=== PATIENT | female | born 1950 | race Caucasian/White ===

== ENCOUNTER → 2019-12-11 | Outpatient (CLI) | payer OTHER, MEDICARE ==
[2019-12-11 10:50] LABS: BASO # 0.1 x10^3/uL (0.0-0.2); BASO % 1 % (0-3); EOS # 0.1 x10^3/uL (0.0-0.7); EOS % 1 % (0-3); HEMOGLOBIN 15.4 g/dL (12.0-15.5); LYMPH # 2.5 x10^3/uL (1.0-4.8); LYMPH % 23 % (24-48); MEAN CORPUSCULAR HEMOGLOBIN 33 pg (25-35); MEAN CORPUSCULAR HGB CONC 34 g/dL (31-37); MEAN CORPUSCULAR VOLUME 96 fL (79-100); MONO # 0.8 x10^3/uL (0.0-1.1); MONO % 7 % (0-9); NEUT # 7.5 x10^3/uL (1.8-7.7); NEUT % 68 % (31-73); PLATELET COUNT 358 x10^3/uL (140-400); RED BLOOD COUNT 4.68 x10^6/uL (3.50-5.40); RED CELL DISTRIBUTION WIDTH 13.2 % (11.5-14.5)
[2019-12-11 11:17] LABS: ANION GAP 9 (6-14); BLOOD UREA NITROGEN 15 mg/dL (7-20); BUN/CREATININE RATIO 21 (6-20); CALCIUM 9.3 mg/dL (8.5-10.1); CARBON DIOXIDE 27 mmol/L (21-32); CHLORIDE 103 mmol/L (98-107); CREATININE 0.7 mg/dL (0.6-1.0); GFR 82.7; GLUCOSE 102 mg/dL (70-99); POTASSIUM 4.1 mmol/L (3.5-5.1); SODIUM 139 mmol/L (136-145)
[2019-12-11 11:23] LABS: ALBUMIN 3.8 g/dL (3.4-5.0); ALBUMIN/GLOBULIN RATIO 0.8 (1.0-1.7); ALK PHOS 98 U/L (46-116); ALT (SGPT) 15 U/L (14-59); TOTAL BILIRUBIN 0.4 mg/dL (0.2-1.0); TOTAL PROTEIN 8.4 g/dL (6.4-8.2)
[2019-12-11 11:25] LABS: AST (SGOT) < 5 U/L (15-37)
[2019-12-12 19:10] LABS: ANA INTERP Negative (.)
== END ==
LOC: ONCLAB 10:35
PROVIDERS: ATTEND Internal Medicine Hematology & Oncology
DX: D72.829 Elevated white blood cell count, unspecified (principal)
CPT/HCPCS: 36415; 80053; 81270; 85025; 86038

== ENCOUNTER → 2019-12-20 | Outpatient (CLI) | payer OTHER, MEDICARE ==
--- NOTE | 2019-12-20 10:09 | RAD ---
DATE: 12/20/2019 8:03 AM EXAM: MAMMO [place] SCREENING BILATERAL HISTORY: Screening COMPARISON: None. This is a baseline Bilateral CC and MLO views of the breasts were performed. Bilateral breast tomosynthesis was performed in CC and MLO projections. This study was interpreted with the benefit of Computerized Aided Detection (CAD). FINDINGS: Breast Density: FATTY The Breast Parenchyma is primarily fatty replaced. Breast parenchyma level density A. No suspicious masses, microcalcifications or architectural distortion is present to suggest malignancy in either breast. The visualized axillae are unremarkable. IMPRESSION: No mammographic evidence of malignancy. BI-RADS CATEGORY: 1 NEGATIVE RECOMMENDED FOLLOW-UP: 12M 12 MONTH FOLLOW-UP Annual screening mammography is recommended, unless clinically indicated sooner based on symptoms or change in physical exam. PQRS compliance statement: Patient information was entered into a reminder system with a target due date for the next mammogram. Mammography is a sensitive method for finding small breast cancers, but it does not detect them all and is not a substitute for careful clinical examination. A negative mammogram does not negate a clinically suspicious finding and should not result in delay in biopsying a clinically suspicious abnormality. "Our facility is accredited by the [employer] Mammography Program."
== END | disposition home or self-care (01) ==
LOC: MAMMO 07:41
PROVIDERS: ATTEND Internal Medicine Hematology & Oncology
DX: Z12.31 Encounter for screening mammogram for malignant neoplasm of breast (principal)
CPT/HCPCS: 77063; 77067

== ENCOUNTER → 2019-12-28 | Outpatient (CLI) | payer OTHER ==
--- NOTE | 2019-12-28 08:29 | RAD ---
EXAM: CT chest low dose lung cancer screening. HISTORY: Cigarette smoking history. TECHNIQUE: Computed tomographic images of the chest were obtained without contrast. Multiplanar reformatting was performed. *One or more of the following individualized dose reduction techniques were utilized for this examination: 1. Automated exposure control. 2. Adjustment of the mA and/or kV according to patient size. 3. Use of iterative reconstruction technique. COMPARISON: None. FINDINGS: There is no pneumothorax or pleural effusion. There is linear scarring within the anterior medial right upper lobe and middle lobe. There is also mild scarring involving the anterior medial left upper lobe and lingula. There is no suspicious pulmonary nodule. The heart is normal in size. There is calcified atherosclerotic plaque involving the coronary arteries. The aorta is normal in caliber. There is no mediastinal or hilar lymphadenopathy. There is no acute finding involving the upper abdomen or osseous structures. There is multilevel degenerative change involving the thoracic spine. IMPRESSION: 1. No acute thoracic finding or suspicious pulmonary nodule. Lung RADS category 1: Annual CT chest low dose lung cancer screening is recommended. 2. Focal areas of scarring predominantly within the anterior medial right upper and middle lobes. Electronically signed by: Carole Cervantes MD (12/28/2019 8:26 AM) [id number]
--- NOTE | 2019-12-28 08:56 | RAD ---
Three-view right knee HISTORY: Right knee pain for one year AP lateral oblique views There is a and 11 cm in length sclerotic lesion in the distal femur that causes significant cortical thickening medially however in the lateral view it is seen both anterior and posteriorly. There is some irregularity of the femoral shaft with mixed sclerotic and lytic changes. This is seen above the joint space. The remaining visualized osseous structures appear normal. IMPRESSION: Blastic osseous lesion of the distal femur. This could be primary sarcoma. Recommend MRI with without contrast if the patient does not have known metastatic cancer. Electronically signed by: Alejandro Saravia III, MD (12/28/2019 8:53 AM) [id number]
== END | disposition home or self-care (01) ==
LOC: CT 09:41
PROVIDERS: ATTEND Internal Medicine Hematology & Oncology
DX: M17.11 Unilateral primary osteoarthritis, right knee (principal); I25.10 Atherosclerotic heart disease of native coronary artery without angina pectoris; G57.20 Lesion of femoral nerve, unspecified lower limb; M47.814 Spondylosis without myelopathy or radiculopathy, thoracic region; F17.210 Nicotine dependence, cigarettes, uncomplicated
CPT/HCPCS: 73562; G0297

== ENCOUNTER → 2020-01-04 | Outpatient (CLI) | payer OTHER ==
--- NOTE | 2020-01-04 13:09 | RAD ---
STUDY: MRI of the right knee without contrast INDICATION: Right knee pain. Leukocytosis. COMPARISON: Right knee radiographs 12/28/2019. TECHNIQUE: Multiplanar MR imaging of the right knee performed without the use of intravenous or intra-articular contrast. FINDINGS: Menisci: Intact. Cruciate ligaments: Intact. Collateral ligaments: Intact. Tendons: Edema-like signal along the adductor sussy as it approaches its femoral insertion but the tendon remains intact. The additional tendons at the knee are intact as well. Cartilage: Patellofemoral: Localized high-grade chondrosis at the medial patellar facet adjacent to the median ridge. No high-grade trochlear chondrosis. Lateral compartment: Focal high-grade/full-thickness chondral defect at the far posterior nonweightbearing lateral femoral condyle, image 10 series 5, measuring approximately 4 x 7 mm. Medial compartment: Partial thickness chondrosis at the weightbearing medial femoral condyle more so than medial tibial plateau with extension to involve the proximal nonweightbearing medial femoral condyle. Bones: Partially imaged thick periosteal reaction centered along the medial margin of the distal femur and becoming less distinct approaching the adductor tubercle. The visualized portion measures up to 9 mm in thickness. Patchy marrow edema most notable deep to the periosteal reaction at and just above adductor tubercle and less pronounced scattered elsewhere subjacent to the femoral diametaphyseal cortex such as on image 5 series 5. Where the periosteal reaction is thickest the margins are smooth but more irregular at other locations such as at the anterior aspect of the distal diaphysis, image 3 series 5. Tibial plateau cystic focus deep to the medial meniscus posterior root insertion is typical of an intraosseous ganglion. More patchy T2 signal at the far posterior lateral tibial plateau is favored vascular and not suspicious for an aggressive lesion. Miscellaneous: Small tracking ganglion cyst along the interface of the popliteus and medial gastrocnemius muscles. No significant knee joint effusion. Soft tissue edema along the anterior and medial aspects of the distal femur such as involving the prefemoral fat pad and extending adjacent to the medial gastrocnemius origin. No pathologically enlarged popliteal fossa lymph nodes. IMPRESSION: 1. Not fully imaged is a thick periosteal reaction along the medial half of the distal femur extending to approximately the adductor tubercle. Associated patchy marrow and surrounding soft tissue edema-like signal. Chronic osteomyelitis could in part account for the findings but the presence of edema could indicate ongoing/smoldering infection. Primary or secondary lymphoma, metastatic disease or a primary osseous malignancy cannot be excluded until the full extent of the process has been imaged. It is recommended that the patient return for a repeat MRI with the field of view extending from the mid femur to the knee articulation and both with and without contrast. 2. No acute injury of the soft tissue supporting structures of the knee. 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 Electronically signed by: LEVI WISE MD (01/04/2020 1:06 PM) [id number]
== END | disposition home or self-care (01) ==
LOC: MRI 08:35
PROVIDERS: ATTEND Internal Medicine Hematology & Oncology
DX: M17.11 Unilateral primary osteoarthritis, right knee (principal); D72.829 Elevated white blood cell count, unspecified; M86.8X6 Other osteomyelitis, lower leg
CPT/HCPCS: 73721

== ENCOUNTER 2021-05-11 08:55 | Emergency (ER) | payer OTHER ==
[~2021-05-11] VITALS: Ht 157.5 cm; Wt 56.3 kg
--- NOTE | 2021-05-11 09:23 | PHYS DOC ---
General Adult EDM: Chief Complaint: COUGH HPI: HPI: Patient is a 71-year-old female who presents to the emergency department for a productive cough and shortness of breath x7 days. Patient denies fever, chest pain, sick exposures, nausea, vomiting. She is not vaccinated for COVID-19 but did receive the influenza vaccine. Patient has a history of hypertension and is a current 1 pack/day smoker. Review of Systems: Review of Systems: Constitutional: negative unless reported in HPI Eyes: negative unless reported in HPI HENT: negative unless reported in HPI Respiratory: negative unless reported in HPI Cardiovascular: negative unless reported in HPI GI: negative unless reported in HPI : negative unless reported in HPI Musculoskeletal: negative unless reported in HPI Integument: negative unless reported in HPI Neurologic: negative unless reported in HPI Endocrine: negative unless reported in HPI Lymphatic: negative unless reported in HPI Psychiatric: negative unless reported in HPI Heart Score: C/O Chest Pain: No Risk Factors: Risk Factors: DM, Current or recent (<one month) smoker, HTN, HLP, family history of CAD, obesity. Risk Scores: Score 0 - 3: 2.5% MACE over next 6 weeks - Discharge Home Score 4 - 6: 20.3% MACE over next 6 weeks - Admit for Clinical Observation Score 7 - 10: 72.7% MACE over next 6 weeks - Early Invasive Strategies Physical Exam: PE: Constitutional: Well developed, well nourished, no acute distress, non-toxic appearance. [] HENT: Normocephalic, atraumatic, bilateral external ears normal, oropharynx moist, no oral exudates, nose normal. [] Eyes: PERRL, EOMI, conjunctiva normal, no discharge. [] Neck: Normal range of motion, no tenderness, supple, no stridor. [] Cardiovascular:Heart rate tachycardic rhythm, no murmur [] Lungs & Thorax: scattered wheezing. Abdomen: Bowel sounds normal, soft, no tenderness, no masses, no pulsatile masses. [] Skin: Warm, dry, no erythema, no rash. [] Back: Normal range of motion Extremities: No tenderness, no cyanosis, no clubbing, ROM intact, no edema. [] Neurologic: Alert and oriented X 3, normal motor function, normal sensory function, no focal deficits noted. [] Psychologic: Affect normal, judgement normal, mood normal. [] EKG: EKG: [] Radiology/Procedures: Radiology/Procedures: []REASON: soa, cough, pui PROCEDURE: PORTABLE CHEST 1V EXAM: Chest, single view. HISTORY: Cough. Shortness of air. COMPARISON: CT dated 12/28/2019. FINDINGS: A frontal view of the chest is obtained. There is linear right parahilar opacity likely due to scarring demonstrated on the comparison CT. There is mild emphysema. There is right basilar opacity likely due to atelectasis. There is also slight blunting of the right costophrenic angle due t o pleural thickening or trace pleural fluid. There is a prominent cardiac silhouette. IMPRESSION: 1. Suspected right basilar atelectasis or infiltrate with slight pleural thickening or trace pleural fluid. 2. Emphysema and right perihilar scarring. Electronically signed by: Carole Cervantes MD (05/11/2021 9:29 AM) [id number] DICTATED and SIGNED BY: CAROLE CERVANTES MD DATE: 05/11/21 [id number] 0 Course & Med Decision Making: Course & Med Decision Making Pertinent Labs and Imaging studies reviewed. (See chart for details) Patient presents for a productive cough and shortness of breath x1 week. Patient is a current 1 pack/day smoker and has history of hypertension. Patient is afebrile, not hypoxic, heart rate is 103 bpm. Patient will be tested for COVID-19 and influenza. She will have a chest x-ray to rule out pneumonia. Patient is Covid positive. Chest x-ray does show pneumonia. Patient will be treated with combination therapy antibiotic to treat community-acquired pneumonia, she will be discharged home with a ProAir inhaler and steroids as she does have emphysematous changes on her chest x-ray and likely has COPD due to her smoking. Educated on smoking cessation. Advised to purchase pulse oximeter. Patient's vital signs continue to be stable, her heart rate is 100 bpm and she is not hypoxic or febrile. I discussed with patient all findings and diagnostic testing as well as the need to follow-up with PCP for further evaluation and treatment or return to the ER if any new or worsening symptoms. Strict return precautions were also discussed at length. Patient voiced understanding and agreement with the plan. Patient is hemodynamically stable at the time of disposition. Dragon Disclaimer: Dragon Disclaimer: This electronic medical record was generated, in whole or in part, using a voice recognition dictation system. Departure Departure Impression: Primary Impression: Pneumonia due to COVID-19 virus Disposition: 01 HOME / SELF CARE / HOMELESS Condition: GOOD Referrals: ARTHUR MCFADDEN MD (PCP) Patient Instructions: Pneumonia, Adult, Smoking Cessation, Tips For Success Additional Instructions: You were seen in the emergency department today for cough and shortness of breath. Your rapid Covid test was positive. Your chest x-ray did show pneumonia. You are being discharged home with 2 antibiotics to treat this pneumonia. You are also being discharged home with an inhaler that you can use when you feel short of breath as needed. Also, take steroids starting tomorrow. Please discontinue smoking. Increase your fluids and rest. Take Tylenol and ibuprofen for any pain or fevers. I would advise you to purchase a pulse oximeter and monitor your oxygen saturation levels at home. If they drop below 90%, please return to the emergency department. Follow-up with your primary care provider tomorrow regarding your ER visit. Return to the emergency department if you develop increased shortness of breath, chest pain, high fevers refractory to treatment, intractable nausea or vomiting, weakness. You have been tested for or diagnosed with COVID-19. It is an infection caused by a new type of coronavirus. COVID-19 will cause cold-like or mild flu symptoms in most. It can cause more severe symptoms like problems breathing in some. There is no treatment for COVID-19. The body will clear the infection over time. Self-care will help to ease discomfort. Steps to Take: Self-Care Rest as needed. Healthy habits may help you feel better. Steps include: Choose healthy foods including fruits and vegetables. Drink water throughout the day. Get plenty of sleep each night. If you smoke, try to quit. It may ease breathing. Avoid alcohol. Keep Others Healthy The virus can spread to others. Droplets are released every time you sneeze or cough. The droplets can get into the mouth, nose, or eyes of people near you and lead to infection. To lower the chances of spreading COVID-19 to others: Stay at home until your doctor has said it is safe to leave. If you tested positive this will mean staying isolated until both of the following are true: At least 7 days have passed since the start of illness. You are free of fever for at least 72 hours without the use of medicine. During this time: - Avoid public areas, events, or transportation. Do not return to work or school until your doctor has said it is safe to do so. - Call ahead if you need to go to a medical center. Let them know you may have COVID-19. It will help them guide you where to go. They may also ask you to wear a facemask when you come to the office. - If you call for emergency medical services, let them know you may have COVID- 19. While at home: - Try to avoid close contact with others. Stay about 6 feet away. - If possible, spend most of your time in a separate room from others. - Use a face mask if you will be in close contact with others such as sharing a room or vehicle. - Have someone wipe down common surfaces in the home. Use household potash flaker every day on areas like doorknobs, counters, or sinks. - Cough or sneeze into a tissue. Throw the tissue away right after use. If a tissue is not available, cough or sneeze into your elbow. - Wash your hands often. Wash them after sneezing or coughing. Use soap and water and wash for at least 20 seconds. Alcohol based hand ceiling cleaner can be used if soap and water is not available. - Do not prepare food for others. Avoid sharing personal items like forks, spoons, or toothbrushes. - Avoid close contact with pets while you are sick. There is no evidence of the virus passing to pets. This is a safety step until more is known about this virus. Isolation can be frustrating. Social interaction can help. Keep in touch with friends and family through phone and tech options. You can still interact with others in your home, just keep a safe distance of about 6 feet. Follow-up: Your doctors office will check in with you to see if there are any changes in your health. You may be asked to keep track of symptoms to share with them. They will also let you know when you are clear to be in public again. Problems to Look Out For: Contact your doctor if your recovery is not going as you expect. Get emergency care if you have problems such as: - Trouble breathing - Nonstop chest pain or pressure - Changes in awareness, confusion, or problems waking - Lips or face have bluish color - Worsening of symptoms If you think you have an emergency, call for emergency medical services right away. As taken from [facility] [place] [facility] Azithromycin (AZITHROMYCIN TABLET) 250 Mg Tablet 1 PKG PO UD for 5 Days, #6 TAB 0 Refills 2 the first day followed by 1 for days 2-5 Prov: LIS MENA APRN 05/11/21 Amoxicillin/Potassium Clav (AMOX TR-K CLV 500-125 MG TAB) 1 Each Tablet 1 TAB PO BID for 5 Days, #10 TAB 0 Refills Prov: LIS MENA APRN 05/11/21 Prednisone (PREDNISONE) 20 Mg Tablet 1 TAB PO BID for 5 Days, #10 TAB 0 Refills start tomorrow, 05/12/21 Prov: LIS MENA APRN 05/11/21 Albuterol Sulfate (Proair Hfa) 8.5 Gm Hfa.aer.ad 2 PUFF IH PRN Q4-6HRS PRN for wheezing for 21 Days, #1 INHALER 0 Refills Prov: LIS MENA APRN 05/11/21 LIS MENA APRN May 11, 2021 09:23
--- NOTE | 2021-05-11 09:32 | RAD ---
EXAM: Chest, single view. HISTORY: Cough. Shortness of air. COMPARISON: CT dated 12/28/2019. FINDINGS: A frontal view of the chest is obtained. There is linear right parahilar opacity likely due to scarring demonstrated on the comparison CT. There is mild emphysema. There is right basilar opaci ty likely due to atelectasis. There is also slight blunting of the right costophrenic angle due to pl eural thickening or trace pleural fluid. There is a prominent cardiac silhouette. IMPRESSION: 1. Suspected right basilar atelectasis or infiltrate with slight pleural thickening or trace pleural fluid. 2. Emphysema and right perihilar scarring. Electronically signed by: Carole Cervantes MD (05/11/2021 9:29 AM) [id number]
[2021-05-11 09:49] LABS: INFLUENZA A PATIENT NEGATIVE (NEGATIVE); INFLUENZA B PATIENT NEGATIVE (NEGATIVE)
[2021-05-11] MEDS ORDERED: AMOX1TAB10 PO (09:58)
[2021-05-11] MEDS ORDERED: ALBU2.5V8 IH (09:58)
[2021-05-11] MEDS ORDERED: PRED20TA PO (09:58)
[2021-05-11] MEDS ORDERED: AZIT250T6 PO (09:58)
[2021-05-11] MEDS ORDERED: predniSONE 20 MG TABLET PO ONE (10:00)
[2021-05-11 10:20] VITALS: BP 129/68
== END 2021-05-11 10:25 | disposition home or self-care (01) ==
LOC: ER 08:55
DX: U07.1 COVID-19 (principal); J12.82 Pneumonia due to coronavirus disease 2019
CPT/HCPCS: 71045; 87428; 99284